=== PATIENT | male | born 1980 | race Caucasian/White ===

== ENCOUNTER 2019-02-08 08:41 | Inpatient (IN) ==
[2019-02-08] MEDS ORDERED: ZOFRAN IV PRN (09:11)
[2019-02-08] MEDS ORDERED: DULCOLAX PR PRN (09:11)
[2019-02-08] MEDS ORDERED: ROBAXIN PO PRN (09:11)
[2019-02-08] MEDS ORDERED: SALINE LOCK IV FLUID XX ONE (09:11)
[2019-02-08] MEDS ORDERED: NICODERM PATCH TD PRN (09:11)
[2019-02-08] MEDS ORDERED: TYLENOL PO PRN (09:11)
[2019-02-08] MEDS ORDERED: BENTYL PO PRN (09:11)
[2019-02-08] MEDS ORDERED: SENOKOT PO PRN (09:11)
[2019-02-08] MEDS ORDERED: IMODIUM PO PRN (09:11)
[2019-02-08] MEDS ORDERED: ZOFRAN ODT PO PRN (09:11)
[2019-02-08] MEDS ORDERED: D5W 1,000 ML IV PRN (09:11)
[2019-02-08] MEDS ORDERED: MAALOX PLUS LIQUID PO PRN (09:11)
[2019-02-08] MEDS ORDERED: PHENOBARBITAL IV PRN (09:11)
[2019-02-08] MEDS ORDERED: TUBERSOL ID ONE (09:11)
[2019-02-08] MEDS ORDERED: DESYREL PO PRN (09:11)
[2019-02-08] MEDS ORDERED: MOTRIN PO PRN (09:11)
[2019-02-08 10:00] LABS: HEMATOCRIT 43.6 % (42.0-52.0); HEMOGLOBIN 14.6 g/dL (14.0-18.0); MCHC 33.5 g/dL (33-37); MCV 86.7 FL (81-99); MPV 9.4 FL (7.4-10.4); RBC 5.03 XMIL (4.7-6.1); WBC 5.17 X1000 (4.8-10.8)
[2019-02-08] MEDS ORDERED: M.V.I.-12 10 ML, FOLIC ACID 1 MG, MAGNESIUM SULFATE 1 GM, THIAMINE 100 MG in NS 1,000 ML IV ONE (10:00)
[2019-02-08] MEDS: LIBRIUM PO SCH ×4 (10:05→23:51)
[2019-02-08 10:12] LABS: AMYLASE 36 U/L (20-200); LIPASE 35 U/L (13-60)
[2019-02-08 10:16] LABS: AGAP 12; ALBUMIN 4.7 g/dL (3.5-5.0); ALKALINE PHOSPHATASE 48 U/L (32-122); BUN 6 mg/dL (8-22); CALCIUM 10.4 mg/dL (8.8-10.2); CHLORIDE 102 mmol/L (98-107); COSMO 279; CREATININE 0.7 mg/dL (0.7-1.2); ESTIMATED GFR > 60; GLUCOSE 102 mg/dL (70-104); GOT 45 U/L (10-34); GPT 36 U/L (10-44); POTASSIUM 4.2 mmol/L (3.5-5.1); SODIUM 141 mmol/L (136-145); TCO2 27 mmol/L (25-35); TOTAL PROTEIN 8.3 g/dL (6.3-8.3)
[2019-02-08 10:21] LABS: INR 0.9; PROTIME 12.6 Seconds (11.0-16.0)
[2019-02-08 15:22] LABS: URINE SOURCE VOIDED
[2019-02-08 15:35] LABS: BILIRUBIN URINE NEGATIVE (NEGATIVE); BLOOD URINE NEGATIVE (NEGATIVE); CLARITY CLEAR (CLEAR); COLOR YELLOW; GLUCOSE URINE NEGATIVE (NEGATIVE); KETONE URINE NEGATIVE (NEGATIVE); LEUKOCYTES URINE NEGATIVE (NEGATIVE); NITRITE URINE NEGATIVE (NEGATIVE); PROTEIN URINE NEGATIVE (NEGATIVE); UROBILINOGEN URINE NORMAL
[2019-02-08 15:40] LABS: UR AMPHETAMINES QUAL NONE DETECTED (NONE DETECT); UR BARBITUATES QUAL NONE DETECTED (NONE DETECT); UR BENZODIAZEPIN QUAL PRESUMPTIVE POSITIVE (NONE DETECT); UR CANNABINOIDS QUAL NONE DETECTED (NONE DETECT); UR COCAINE QUAL NONE DETECTED (NONE DETECT); UR METHADONE QUAL NONE DETECTED (NONE DETECT); UR METHAMPHETAMINE QUAL NONE DETECTED (NONE DETECT); UR OPIATES QUAL NONE DETECTED (NONE DETECT); UR OXYCODONE QUAL NONE DETECTED (NONE DETECT); UR PCP QUAL NONE DETECTED (NONE DETECT); UR PROPOXYPHENE QUAL NONE DETECTED (NONE DETECT); UR TCA QUAL NONE DETECTED (NONE DETECT)
--- NOTE | 2019-02-08 17:25 | HISTORY AND PHYSICAL ---
CHIEF COMPLAINT: Nausea, vomiting. HISTORY OF PRESENT ILLNESS: The patient is a 38-year-old male who presented to [facility] secondary to nausea, vomiting, abdominal pain, tremors, myalgias. Notes that he has been drinking heavily and it has cost him lots of problems in his social life. 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 PAST MEDICAL HISTORY: ADD, chronic alcoholism. MEDICATIONS: No current medications. ALLERGIES: No known drug allergies. REVIEW OF SYSTEMS: CINA score is 15 [*] secondary to nausea, vomiting, abdominal pain, tremors, myalgias, paroxysmal sweating, paresthesias. Denies any fevers, chills, headaches, blurred vision, change in vision. Denies any focalized weakness in his extremities. Denies dysuria, frequency, urgency, hesitancy, polyuria or polydipsia. Denies any skin rashes, weight loss or weight gain. SUBSTANCE ABUSE HISTORY: The patient has not been in treatment facility before. He has had a long history of alcoholism. He started drinking at age 17, started abusing around age 20. States that he was sober for a while; however, he started drinking again, which has caused him to lose his business and file bankruptcy. Currently, he is drinking up to 18 16-ounce cans a day. Started smoking at age 17, currently dips tobacco. Does not use any other illicit substances. FAMILY HISTORY: No contributing family history. SOCIAL HISTORY: Patient is single. He is unemployed. Lives at home in [place]. PHYSICAL EXAMINATION: VITAL SIGNS: Reviewed and stable. GENERAL: Patient is awake, alert. He is in no current respiratory distress. Very pleasant to talk with. HEENT: Normocephalic, atraumatic. RENZO. NECK: Supple, no JVD. CARDIOVASCULAR: Regular rate. No murmurs. Chest clear, nonlabored. ABDOMEN: Soft, nondistended, nontender. EXTREMITIES: Moves all extremities. NEUROLOGIC: No focal neurological changes. He does have tremors with his arms extended. LABS: Pending. ASSESSMENT: 1. Nausea, vomiting. 2. Abdominal pain. 3. Myalgias. 4. Paresthesias. 5. Paroxysmal sweating. 6. Tremors. 7. Alcohol abuse withdrawal and stabilization. PLAN: We will continue patient in the hospital. We will continue counseling. Will place him on a high-dose Librium taper, wean as tolerated. Discussed with patient the use of naltrexone on discharge for medication-assisted therapy. cc: Tyler cMadams MD
[2019-02-08] MEDS: ATARAX PO PRN (23:54)
[2019-02-09] MEDS: LIBRIUM PO SCH ×4 (03:28→21:05)
[2019-02-09] MEDS: PROTONIX PO SCH ×2 (06:28→07:31)
[2019-02-09] MEDS: ATARAX PO PRN ×3 (07:31→22:33)
[2019-02-09] MEDS: THERA M PLUS PO SCH (09:37)
[2019-02-09] MEDS: FOLIC ACID PO SCH (09:38)
[2019-02-09] MEDS: VITAMIN B-1 PO SCH (09:39)
--- NOTE | 2019-02-09 18:28 | PROGRESS NOTE ---
DATE: 02/09/2019 SUBJECTIVE: Patient overall notes that he is feeling a lot better. He is having less tremors, less myalgias. Denies any fevers or chills. PHYSICAL EXAMINATION: Vital Signs: Reviewed and stable. General: He is awake and alert. He is in no distress. HEENT: Normocephalic. Neck: Supple. CARDIOVASCULAR: Regular rate. Chest: Clear. Abdomen: Soft. Extremities: Moves all extremities. ASSESSMENT: 1. Nausea and vomiting. 2. Abdominal pain. 3. Myalgias. 4. Paresthesias. 5. Tremors. 6. Alcohol abuse withdrawal and stabilization. PLAN: We will continue patient in the hospital, continue to wean Librium. Continue counseling. Further orders as needed. cc: Tyler Mcadams MD
[2019-02-09] MEDS: SEROQUEL PO PRN (21:05)
[2019-02-09] MEDS: CARAFATE PO SCH (21:07)
[2019-02-10] MEDS: LIBRIUM PO SCH ×4 (02:16→18:54)
[2019-02-10] MEDS: CARAFATE PO SCH ×4 (02:16→20:50)
[2019-02-10] MEDS: PROTONIX PO SCH (06:35)
[2019-02-10] MEDS: FOLIC ACID PO SCH (09:47)
[2019-02-10] MEDS: VITAMIN B-1 PO SCH (09:47)
[2019-02-10] MEDS: THERA M PLUS PO SCH (09:47)
[2019-02-10] MEDS: ATARAX PO PRN ×2 (14:23→20:50)
[2019-02-10] MEDS ORDERED: REVIA PO ONE (16:04)
[2019-02-10] MEDS: NS 1,000 ML IV SCH (16:17)
[2019-02-10 20:40] VITALS: BP 128/83
--- NOTE | 2019-02-10 22:06 | PROGRESS NOTE ---
DATE: 02/10/2019 SUBJECTIVE: The patient overall notes that he is feeling a little bit better. States he is still having lots of cravings and is still worried about using and abusing. He states he wants to restart his Adderall. PHYSICAL EXAMINATION: Vital Signs: Reviewed. Temperature 97.2 degrees, pulse 81, respiratory 18, BP 130/90. General: The patient is awake. He is in no current respiratory distress. HEENT: Normocephalic. Neck: Supple. CARDIOVASCULAR: Regular rate. Chest: Clear, unlabored. Abdomen: Soft, nondistended. Extremities: Moves all extremities. ASSESSMENT: 1. Nausea and vomiting. 2. Abdominal pain. 3. Tremors. 4. Myalgias. 5. Chronic alcohol abuse. 6. Chronic anxiety. 7. Attention deficit disorder. PLAN: Discussed with patient that he probably does not need to have great concentrating skills while he is in the hospital. We will continue to wean Librium. Hopefully home soon. cc: Tyler Mcadams MD
[2019-02-10] MEDS: SEROQUEL PO PRN (22:40)
[2019-02-11] MEDS: NS 1,000 ML IV SCH (00:26)
[2019-02-11] MEDS: CARAFATE PO SCH ×2 (01:10→08:26)
[2019-02-11] MEDS: PROTONIX PO SCH (06:31)
[2019-02-11] MEDS: VITAMIN B-1 PO SCH (08:26)
[2019-02-11] MEDS: FOLIC ACID PO SCH (08:26)
[2019-02-11] MEDS: THERA M PLUS PO SCH (08:27)
[2019-02-11] MEDS: LIBRIUM PO SCH (08:27)
[2019-02-11] MEDS ORDERED: REVIA PO SCH (09:00)
--- NOTE | 2019-02-12 14:40 | DISCHARGE SUMMARY ---
ADMISSION DATE: 02/08/2019 DISCHARGE DATE: 02/11/2019 DISCHARGE DIAGNOSES: 1. Nausea and vomiting. 2. Abdominal pain. 3. Myalgias. 4. Tremors. 5. Paresthesias. 6. Anxiety and depression. 7. Chronic alcohol use and abuse. CONSULTATIONS: None. PROCEDURE: None. BRIEF HOSPITAL COURSE: Patient is a 38-year-old male who presented to [facility] program secondary to nausea, vomiting, and abdominal pain. Thankfully, he had an uneventful hospital course prolonged only secondary to the amount of alcohol he was drinking as well as his chronic depression. Thankfully on discharge, he is awake and alert. He is overall in no distress and he is feeling better. DISPOSITION: Discussed with patient that he needs outpatient life counseling as well as drug counseling. I did discharge him with medication assisted therapy, naltrexone. Discussed with him the perils of alcohol and alcoholism. Discussed that he needs to avoid all persons, places, situations in which he has been using and abusing in the past. cc: Tyler Mcadams MD
== END 2019-02-11 10:14 | disposition home or self-care (01) | DRG 897 ==
LOC: P.DIRADM 08:47 → P.MEDSURG 09:19
PROVIDERS: ADMIT Family Medicine; ATTEND Family Medicine
CPT/HCPCS: 80053; 80104; 80301; 80305; 80307; 80320; 82055; 82150; 83690; 85027; 85610; 86580; A9270; G0431; G0434; G0477; G0480; G6040; J3411; J3475; J7030